=== PATIENT | female | born 1960 | race Caucasian/White ===

== ENCOUNTER 2018-10-09 14:47 | Emergency (ER) | payer SELFPAY, MEDICAID | END 2018-10-09 16:38 | disposition left against medical advice (07) | LOC: FTE 14:47 | DX: Z53.21 Procedure and treatment not carried out due to patient leaving prior to being seen by health care provider (principal) ==

== ENCOUNTER 2018-12-02 01:31 | Emergency (ER) | payer OTHER ==
[2018-12-02] MEDS: HYDROmorphONE 0.5 MG/0.5 ML SYG IM (03:36)
[2018-12-02] MEDS: KETOROLAC 30 MG INJ IM (03:36)
== END 2018-12-02 04:14 | disposition home or self-care (01) ==
LOC: FTE 01:31
DX: M54.12 Radiculopathy, cervical region (principal)
CPT/HCPCS: 96372; 99284-25